=== PATIENT | female | born 1955 | race Caucasian/White ===

== ENCOUNTER 2017-02-11 08:48 | Day surgery (SDC) | payer BC ==
[~2017-02-11] VITALS: Ht 162.6 cm; Wt 68.5 kg
[2017-02-11] MEDS ORDERED: DEXAMETHASONE SOD PHOSPHATE 4 MG/ML VIAL IVP ONE (11:10)
[2017-02-11] MEDS ORDERED: ONDANSETRON HCL 4 MG/2 ML VIAL IVP ONE (11:10)
[2017-02-11] MEDS ORDERED: MIDAZOLAM HCL 5 MG/5 ML VIAL IVP ONE (11:10)
[2017-02-11] MEDS ORDERED: KETOROLAC TROMETHAMINE 30 MG VIAL IVP ONE (11:10)
[2017-02-11] MEDS ORDERED: LR 1,000 ML IV.SOLN IV ONE (11:10)
[2017-02-11] MEDS ORDERED: LIDOCAINE/EPI 1% 1:100000 20 ML VIAL INJ ONE (11:10)
[2017-02-11] MEDS ORDERED: SEVOFLURANE 15 MIN GAS INH ONE (11:10)
[2017-02-11] MEDS ORDERED: NS IRRIG SOLN 1000 ML IR ONE (11:10)
[2017-02-11] MEDS ORDERED: fentaNYL CITRATE 250 MCG/5 ML AMP IV ONE (11:10)
[2017-02-11] MEDS ORDERED: PROPOFOL 200MG/ 20ML VIAL (DIPRIVAN) IV ONE (11:10)
[2017-02-11] MEDS ORDERED: OXYMETAZOLINE HCL 0.05% NASAL SPRAY NS ONE (11:10)
[2017-02-11] MEDS ORDERED: LR 1,000 ML IV SCH ×2 (12:31)
[2017-02-11] MEDS ORDERED: MEPERIDINE HCL/PF 25 MG/ML DISP.SYRIN IVP PRN ×2 (12:45)
[2017-02-11] MEDS ORDERED: HYDROmorphone 1 MG INJ. 1 MG/ML AMPUL IVP PRN ×2 (12:45)
[2017-02-11] MEDS ORDERED: HYDROmorphone 2 MG/ML VIAL IVP PRN ×4 (12:45)
[2017-02-11 15:13] VITALS: BP_SYST 138
== END 2017-02-11 16:10 | disposition home or self-care (01) ==
LOC: SDS 08:48
PROVIDERS: ATTEND Otolaryngology
DX: J34.2 Deviated nasal septum (principal); J32.9 Chronic sinusitis, unspecified; J33.9 Nasal polyp, unspecified; J34.89 Other specified disorders of nose and nasal sinuses; I10 Essential (primary) hypertension; E78.5 Hyperlipidemia, unspecified
CPT/HCPCS: 30140; 30520; 31254; 31267; 31296; 31297; 87070; 87075; 87101; 87186; 88305; 88311; C1726; J1100; J1170; J1885; J2250; J2405; J2704; J3010; J7120